=== PATIENT | female | born 1955 | race African-American/Black ===

== ENCOUNTER → 2017-11-11 | Outpatient (CLI) | payer BC ==
--- NOTE | 2017-11-11 15:09 | RAD ---
DATE: 11/11/2017 EXAM: DIGITAL SCREEN BILAT W/CAD HISTORY: Routine screening. COMPARISON: 02/01/2016 This study was interpreted with the benefit of Computerized Aided Detection (CAD). FINDINGS: The parenchymal pattern is stable. No dominant mass or malignant appearing microcalcifications are seen. Breast Density: DENSE The breast parenchyma is dense, which could reduce the sensitivity of mammography. Breast parenchyma level density D. IMPRESSION: No mammographic features suspicious for malignancy are identified. BI-RADS CATEGORY: 1 NEGATIVE RECOMMENDED FOLLOW-UP: 12M 12 MONTH FOLLOW-UP PQRS compliance statement: Patient information was entered into a reminder system with a target due date 11/11/2018 for the next mammogram. Mammography is a sensitive method for finding small breast cancers, but it does not detect them all and is not a substitute for careful clinical examination. A negative mammogram does not negate a clinically suspicious finding and should not result in delay in biopsying a clinically suspicious abnormality. "Our facility is accredited by the [employer] Mammography Program."
== END | disposition home or self-care (01) ==
LOC: MAMMO 13:56
PROVIDERS: ATTEND Internal Medicine
DX: Z12.31 Encounter for screening mammogram for malignant neoplasm of breast (principal)
CPT/HCPCS: G0202; 77067

== ENCOUNTER → 2019-01-22 | Outpatient (CLI) | payer BC ==
--- NOTE | 2019-01-22 22:08 | RAD ---
EXAM: Right foot, 3 views. HISTORY: Swelling and bump. COMPARISON: None. FINDINGS: 3 views of the right foot are obtained. There is no acute fracture, dislocation or subluxation. There is mild spurring of the first metatarsal head. There is bulky partially bridging anterior mid foot osteophytosis. There is a small plantar spur. IMPRESSION: 1. Moderate anterior mid foot bulky partially bridging osteophytosis. 2. Small plantar spur. 3. Mild first metatarsal phalangeal osteoarthritis. Electronically signed by: Lilian Morales MD (01/22/2019 10:05 PM) [facility]
== END | disposition home or self-care (01) ==
LOC: RAD 15:47
PROVIDERS: ATTEND Internal Medicine
DX: M19.071 Primary osteoarthritis, right ankle and foot (principal); M25.774 Osteophyte, right foot; M77.51 Other enthesopathy of right foot and ankle
CPT/HCPCS: 73630